=== PATIENT | male | born 1950 | race African-American/Black ===

== ENCOUNTER 2016-12-04 13:02 | Inpatient (IN) | payer OTHER ==
[~2016-12-04] VITALS: Ht 177.8 cm; Wt 154.2 kg
--- NOTE | ~2016-12-04 | EKG ---
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 : 1950 Requested By: Cl Keene Order Number: [id number] MD: Humble Basilio Measurements Intervals [place] Rate: 85 P: 36 KS: 166 QRS: 10 QRSD: 93 T: 14 QT: 370 QTc: 440 Interpretive Statements Sinus rhythm Ventricular premature complex Probable left atrial enlargement Minimal ST elevation, anterior leads No previous ECG available for comparison Electronically Signed On 12-05-2016 13:24:43 CDT by Humble Basilio [email or web address] <ELECTRONICALLY SIGNED> By: Humble Basilio MD 12/05/16 1324 1320 1320 Humble Basilio MD /SANDY
[2016-12-04 13:02] VITALS: BP 220/112
[~2016-12-04 13:02] MED LIST: AMLODIPINE BESY10 MG PO; CLEOCIN HCL300 MG PO; GLIPIZIDE XL5 MG PO; GLUCOPHAGE1000 MG PO; IBUPROFEN 800800 MG PO; LISINOPRIL20 MG PO; NORCO 5-325 TA1 EACH PO; PREDNISONE 20 M20 M1 PO
[2016-12-04 13:39] LABS: ABSOLUTE NEUTROPHILS 3.5 thou/uL (1.4-8.2); BASOPHILS 0.7 % (0.0-2.0); EOSINOPHILS 2.8 % (0.0-3.0); HEMATOCRIT 41.6 % (42.0-52.0); HEMOGLOBIN 14.3 gm/dL (14.0-18.0); LYMPHOCYTES 36.5 % (24.0-44.0); MANUAL DIFF NO; MCH 29.3 pg (26.0-34.0); MCHC 34.3 g/dL (28.0-37.0); MCV 85.5 fL (80.0-100.0); MONOCYTES 8.9 % (1.0-8.0); PLATELET COUNT 164 thou/uL (150-400); POLYS 51.1 % (36.0-66.0); RBC 4.87 mil/uL (4.50-6.00); RDW 12.5 % (10.5-14.5); WBC 6.9 thou/uL (4.0-11.0)
[2016-12-04 13:47] LABS: ANION GAP 11 mmol/L (7-16); BUN 18 mg/dL (7-18); CALCIUM 9.5 mg/dL (8.5-10.1); CHLORIDE 98 mmol/L (98-107); CO2 23 mmol/L (21-32); CREATININE 1.3 mg/dL (0.7-1.3); GLUCOSE 366 mg/dL (74-106); POTASSIUM 4.4 mmol/L (3.5-5.1); SODIUM 132 mmol/L (136-145)
[2016-12-04 13:55] LABS: ALBUMIN 3.9 g/dL (3.4-5.0); ALKALINE PHOSPHATASE 119 U/L (46-116); MAGNESIUM 1.8 mg/dL (1.8-2.4); SGOT 32 U/L (15-37); SGPT 37 U/L (30-65); TOTAL BILIRUBIN 0.3 mg/dL (<0.1-1.0); TOTAL PROTEIN 7.4 g/dL (6.4-8.2); TROPONIN-I < 0.04 ng/mL (<0.04-0.07)
[2016-12-04 14:56] LABS: URINE BILIRUBIN NEGATIVE (Negative); URINE BLOOD TRACE (Negative); URINE COLOR YELLOW; URINE GLUCOSE-RANDOM* 3+ (Negative); URINE KETONES NEGATIVE (Negative); URINE NITRITE NEGATIVE (Negative); URINE PROTEIN (DIPSTICK) TRACE (Negative); URINE UROBILINOGEN 0.2 E.U./dl (0.2-1.0)
[2016-12-04 16:00] VITALS: BP 176/103
[2016-12-04 16:35] VITALS: BP 185/95
[2016-12-04 16:43] VITALS: BP 187/83
[2016-12-04 20:29] VITALS: BP 205/74
[2016-12-05 04:06] VITALS: BP 186/82
[2016-12-05 05:13] LABS: HEMATOCRIT 39.5 % (42.0-52.0); HEMOGLOBIN 13.5 gm/dL (14.0-18.0); MCH 29.1 pg (26.0-34.0); MCHC 34.2 g/dL (28.0-37.0); MCV 84.9 fL (80.0-100.0); RBC 4.65 mil/uL (4.50-6.00); WBC 6.4 thou/uL (4.0-11.0)
[2016-12-05 05:19] LABS: CALCIUM 9.6 mg/dL (8.5-10.1); CREATININE 1.3 mg/dL (0.7-1.3)
[2016-12-05 08:00] VITALS: BP 174/84
[2016-12-05 12:32] VITALS: BP 199/111
[2016-12-05 12:33] VITALS: BP 174/97
[2016-12-05 16:00] VITALS: BP 110/51; BP 164/79
[2016-12-05] MEDS ORDERED: CARVEDILOL12.5 MG PO (17:09)
[2016-12-05] MEDS ORDERED: AMLODIPINE BESY10 MG PO (17:09)
[2016-12-05] MEDS ORDERED: LISINOPRIL20 MG PO (17:09)
[2016-12-05] MEDS ORDERED: GLUCOPHAGE1000 MG PO (17:10)
[2016-12-05] MEDS ORDERED: GLYBURIDE 1.21.25 M1 PO (17:10)
[2016-12-05 17:39] VITALS: BP 174/97
== END 2016-12-05 18:17 | disposition home or self-care (01) | DRG 305 ==
LOC: ER 13:02 → EROBS 16:07 → 4N 17:04
PROVIDERS: Emergency Medicine; Hospitalist
DX: I16.0 Hypertensive urgency (principal); M10.9 Gout, unspecified; E11.65 Type 2 diabetes mellitus with hyperglycemia; Z79.899 Other long term (current) drug therapy
CPT/HCPCS: 10790